=== PATIENT | male | born 1975 | race Caucasian/White ===

== ENCOUNTER 2021-04-19 21:41 | Emergency (ER) | payer OTHER ==
[~2021-04-19] VITALS: Ht 177.8 cm; Wt 108.9 kg
--- NOTE | 2021-04-19 21:41 | NUR ---
Xavi WHALEY taken to Chair C - Tiffanie EARLY at chairside.
[2021-04-19 21:48] VITALS: BP 146/107
--- NOTE | 2021-04-19 22:23 | NUR ---
CHAYA AT CHAIR FOR MEDICAL EVALUATION.
[2021-04-19] MEDS ORDERED: IBUP-2213 PO (22:30)
[2021-04-19] MEDS ORDERED: oxyCODONE/APAP 5/325 MG 1 TAB TAB PO ONE (22:30)
[2021-04-19] MEDS ORDERED: IBUPROFEN 600 MG TAB PO ONE (22:30)
[2021-04-19] MEDS ORDERED: ACET-1182 PO (22:30)
--- NOTE | 2021-04-19 22:38 | NUR ---
PATIENT BIB [employer]. PATIENT EXAMINED BY DR. BERRY. PATIENT MEDICALLY CLEARED AND RELEASED IN CUSTODY IN STABLE CONDITION. ORIGINAL PRE-BOOK FORM GIVEN TO OFFICER [facility] #[id number].
== END 2021-04-19 22:38 ==
LOC: MED 21:41
DX: M25.552 Pain in left hip (principal); M25.512 Pain in left shoulder; G89.29 Other chronic pain; Z02.89 Encounter for other administrative examinations; Z98.890 Other specified postprocedural states
CPT/HCPCS: 99283